=== PATIENT | male | born 1980 | race Caucasian/White ===

== ENCOUNTER 2023-02-22 11:28 | Emergency (ER) | payer MEDICAID ==
[~2023-02-22] VITALS: Ht 180.3 cm; Wt 99.0 kg
[2023-02-22 11:43] VITALS: BP 115/72; PULSE 105; RESP 20; TEMP 98.3; O2SAT 100
[2023-02-22 15:20] LABS: CHLORIDE 103 mEq/L (98-107); INDEX HEMOLYSI 1 (1-3); INDEX ICTERIC 1 (1-4); INDEX LIPEMIC 1 (1-3); POTASSIUM 4.5 mEq/L (3.5-5.1); SODIUM 137 mEq/L (136-145)
[2023-02-22 15:24] LABS: ALBUMIN 3.4 g/dL (3.4-5.0); CALCIUM 8.9 mg/dL (8.5-10.1); CARBON DIOXIDE 34 mEq/L (21-32); GLUCOSE 96 mg/dL (70-105); UREA NITROGEN BLOOD 10 mg/dL (7-21)
[2023-02-22 15:30] LABS: ALANINE AMINOTRANSFERASE 21 IU/L (13-61); ASPARTATE AMINOTRANSFERASE 14 IU/L (15-37); BILIRUBIN TOTAL 0.2 mg/dL (0.1-1.0); CREATININE 0.8 mg/dL (0.6-1.3); PROTEIN TOTAL 7.9 g/dL (6.0-8.3)
[2023-02-22 15:38] LABS: BASOPHILS % 0.3 % (0.0-2.0); EOSINOPHILS % 1.8 % (0.0-5.0); HEMATOCRIT. 38.7 % (42.0-52.0); HEMOGLOBIN. 12.6 g/dL (14.0-18.0); LYMPHOCYTES % 15.1 % (20.0-50.0); MEAN CORPUSCULAR HGB CONC 32.6 g/dL (31.0-37.0); MEAN CORPUSCULAR VOLUME 86.1 fL (80.0-94.0); MEAN PLATELET VOLUME 7.8 fl (7.4-10.4); MONOCYTES % 5.8 % (2.0-8.0); PLATELET 339 x1000/uL (130-400); RED CELL DISTRIBUTION WIDTH 13.8 % (11.6-14.6); WHITE BLOOD COUNT 9.8 x1000/uL (4.5-11.0)
[2023-02-22] MEDS ORDERED: CEPH500T MT (15:57)
[2023-02-22] MEDS ORDERED: MUPI22OI2 TP (15:57)
== END 2023-02-22 16:11 | disposition home or self-care (01) ==
LOC: ER 11:28
DX: L03.115 Cellulitis of right lower limb (principal); G43.909 Migraine, unspecified, not intractable, without status migrainosus
CPT/HCPCS: 36415; 73630; 80053; 85025; 99284

== ENCOUNTER 2023-03-10 10:44 | Emergency (ER) | payer MEDICAID ==
[~2023-03-10] VITALS: Ht 195.6 cm; Wt 104.0 kg
[~2023-03-10 10:44] MED LIST: CEPH500T MT; MUPI22OI2 TP
[2023-03-10 11:13] VITALS: O2SAT 100
[2023-03-10] MEDS ORDERED: SULF1TAB48 MT (13:36)
[2023-03-10 14:10] VITALS: BP 149/78; PULSE 88; RESP 18; TEMP 98.7
== END 2023-03-10 14:11 | disposition home or self-care (01) ==
LOC: ER 12:08
DX: L03.116 Cellulitis of left lower limb (principal); L03.115 Cellulitis of right lower limb; G43.909 Migraine, unspecified, not intractable, without status migrainosus
CPT/HCPCS: 99283